=== PATIENT | male | born 1945 | race Caucasian/White ===

== ENCOUNTER 2016-06-08 12:17 | Observation (INO) | payer MEDICARE ==
[~2016-06-08 12:17] MED LIST: ANDROGEL1 % TOP; ASAB PO; CENTRUM PO; CO Q-10100 MG PO; LISINOPRIL40 MG PO; VITAMIN B-121000 MC1 SL; VITAMIN D1000 UNI1 PO; VITE PO
[2016-06-08 13:11] LABS: BASOPHILS 0.3 %; BASOPHILS ABSOLUTE 0.02 10/3/uL (0.0-0.16); EOSINOPHILS 2.1 %; EOSINOPHILS ABSOLUTE 0.12 10/3/uL (0.0-0.53); HEMOGLOBIN 13.7 g/dL (13.6-17.8); IMMATURE GRANULOCYTES 0.2 %; IMMATURE GRANULOCYTES ABSOLUTE 0.01 10/3/uL (0.0-0.11); LYMPHOCYTES 36.4 %; LYMPHOCYTES ABSOLUTE 2.13 10/3/uL (0.67-4.30); MANUAL DIFF NO %; MEAN CORPUS HGB CONC 35.1 g/dL (32.0-36.0); MEAN CORPUSCULAR HEMOGLOB 31.6 pg (26.0-34.0); MEAN CORPUSCULAR VOLUME 90.1 fL (80-100); MEAN PLATELET VOLUME 10.5 fL (9.2-13.0); MONOCYTES 9.4 %; MONOCYTES ABSOLUTE 0.55 10/3/uL (0.21-1.20); NEUTROPHILS 51.6 %; NEUTROPHILS ABSOLUTE 3.02 10/3/uL (2.02-8.40); PLATELET COUNT 151 10/3/uL (150-400); RBC DISTRIBUTION WIDTH 12.7 % (12.0-16.0); RED CELL COUNT 4.33 10/6/uL (4.7-6.1); WHITE BLOOD CELLS 5.9 10/3/uL (4.5-10.5)
[2016-06-08 13:20] LABS: INTERNATIONAL NORMAL RATI 1.2 UNITS (-); PARTIAL THROMBO TIME 28.6 SEC (22.5-37.2); PROTIME (NOT ORD) 14.9 SEC (12.0-14.5)
== END 2016-06-09 10:51 | disposition home or self-care (01) ==
LOC: IMGHOLD 12:17 → RADHOLD 12:28 → IMGHOLD 20:12 → 2SO 22:04
PROVIDERS: Nurse Practitioner; Radiology Diagnostic Radiology
PROC: 0TB03ZX Excision of Right Kidney, Percutaneous Approach, Diagnostic (ICD-10-PCS; principal; 2016-06-08)
PROC: 0T503ZZ Destruction of Right Kidney, Percutaneous Approach (ICD-10-PCS; 2016-06-08)
PROC: BW20ZZZ Computerized Tomography (CT Scan) of Abdomen (ICD-10-PCS; 2016-06-08)
DX: N28.89 Other specified disorders of kidney and ureter (principal); I10 Essential (primary) hypertension; J45.909 Unspecified asthma, uncomplicated; Z88.6 Allergy status to analgesic agent; Z79.899 Other long term (current) drug therapy
CPT/HCPCS: 50200; 50592; 74150; 77012; 77013; 85025; 85610; 85730; 88173; 88305; 88333; A9270-GY; G0378; J1170; J1956